=== PATIENT | male | born 1990 | race Caucasian/White ===

== ENCOUNTER 2023-11-09 22:28 | Emergency (ER) | payer BC ==
[2023-11-09 22:40] VITALS: BMI 23.9
[2023-11-09] MEDS ORDERED: ACETAMINOPHEN 325 MG TABLET (FP) ONE (23:40)
[2023-11-09] MEDS ORDERED: KETOROLAC TROMETHAMINE 30 MG/1 ML VIAL ONE (23:40)
[2023-11-09] MEDS: ACETAMINOPHEN 500 MG TABLET (FP) PO ONE (23:49)
[2023-11-09] MEDS: KETOROLAC TROMETHAMINE 30 MG/1 ML VIAL IM ONE (23:50)
[2023-11-09 23:55] VITALS: BP 150/99; PULSE 84; RESP 20; TEMP 98
== END 2023-11-10 00:15 | disposition home or self-care (01) ==
LOC: JER 22:28
DX: R51.9 Headache, unspecified (principal); V49.40XA Driver injured in collision with unspecified motor vehicles in traffic accident, initial encounter; Y92.410 Unspecified street and highway as the place of occurrence of the external cause
CPT/HCPCS: 99283-25